=== PATIENT | female | born 1980 | race Caucasian/White ===

== ENCOUNTER → 2017-09-18 10:10 | Outpatient (CLI) | payer SELFPAY | PROVIDERS: PCP Internal Medicine; Visit Provider Family Medicine | DX: E03.9 Hypothyroidism, unspecified (principal) ==

== ENCOUNTER → 2018-07-20 09:14 | Outpatient (CLI) | payer OTHER, MEDICAID, SELFPAY ==
--- NOTE | 2018-07-20 | DI.RAD.S_ITS ---
PROCEDURE: XR FOOT RT 2V INDICATIONS: HEEL PAIN, GREAT TOE PAIN TECHNIQUE: 3 views of the foot were acquired. COMPARISON: None. FINDINGS: Bones: No fractures or dislocations. No suspicious bony lesions. There is [id number]-le-[id number] first tarsometatarsal joint degeneration. Soft tissues: No tibiotalar joint effusion. Achilles tendon appears normal. IMPRESSION: 1. 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 2. No findings to explain heel pain. Dictated by: Benigno Espinoza M.D. on 07/20/2018 at 12:00 Approved by: Benigno Espinoza M.D. on 07/20/2018 at 12:04
== END ==
PROVIDERS: PCP Internal Medicine; Visit Provider Internal Medicine
DX: M79.671 Pain in right foot (principal); M79.674 Pain in right toe(s); M19.071 Primary osteoarthritis, right ankle and foot
CPT/HCPCS: 73620

== ENCOUNTER → 2019-10-21 12:03 | Outpatient (CLI) | payer OTHER, SELFPAY ==
--- NOTE | 2019-10-21 | DI.US.S_ITS ---
PROCEDURE: US PELVIC COMPLETE INDICATIONS: PAIN TECHNIQUE: Real-time scanning was performed of the pelvic organs, with image documentation. Additional endovaginal scanning was necessary due to incomplete visualization of the adnexal and endometrial structures by transabdominal scanning. COMPARISON: [facility], , US ABDOMEN COMPLETE, 10/21/2019, 12:31. FINDINGS: Transabdominal scanning: No pathologic free abdominal or pelvic fluid. On the accompanying abdominal ultrasound, the kidneys demonstrate a normal appearance. Endovaginal scanning: Uterus: Uterus is normal in size at 7.4 x 4.4 x 5 cm. The endometrium measures 7 mm in combined thickness. Ovaries: The right ovary measures 3.2 x 2.3 x 2.8 cm. The left ovary measures 4 x 2.2 x 3 cm. The ovaries have a normal sonographic appearance, with note made of a dominant cystic follicle involving the right ovary measuring up to 16 mm. No adnexal masses are seen. IMPRESSION: No significant pelvic ultrasound abnormality is seen. Dictated by: Jace Arzola M.D. on 10/24/2019 at 11:48 Approved by: Jace Arzola M.D. on 10/24/2019 at 11:49
--- NOTE | 2019-10-21 | DI.US.S_ITS ---
PROCEDURE: US ABDOMEN COMPLETE INDICATIONS: PAIN TECHNIQUE: Real-time scanning was performed of the abdominal and retroperitoneal organs, with image documentation. COMPARISON: [facility], [place], US PELVIC COMPLETE, 09/21/2019, 14:45. FINDINGS: Liver: Liver is normal in size. There is an 11 mm hyperechoic focus seen within the anterior liver. Gallbladder: There is a 3.5 cm non-mobile gallstone. Additional tiny gravel-like stones can be seen. The gallbladder wall is not thickened, measuring 3 mm or less. No specific pericholecystic fluid is seen. The sonographic Coy sign is positive. Biliary ducts: Intrahepatic bile ducts are non-dilated. Extrahepatic bile duct caliber measures 5-6 mm. Normal is 6-7 mm or less in diameter, or 10 mm or less post-cholecystectomy. Pancreas: Visualized portions of the pancreas are sonographically normal. Spleen: Spleen is normal in size and homogeneous in echotexture. Kidneys: Kidneys are normal in size and echotexture. Right kidney measures 12.1 cm long; left kidney measures 11.7 cm long. No hydronephrosis or nephrolithiasis. No solid masses. Aorta: Visualized aorta is normal in caliber at less than 3 cm. Iliacs: Proximal common iliac arteries are normal in caliber at less than 2.5 cm. IVC: Intrahepatic inferior vena cava is patent. Miscellaneous: No free abdominal fluid. IMPRESSION: Gallstones are seen, including a 3.5 cm nonmobile gallstone. There is a positive sonographic Coy sign. No additional sonographic signs of cholecystitis are seen, however. Please correlate with physical examination findings, patient presentation, and laboratory values. 11 mm hyperechoic focus in the anterior liver, which may be related to a hemangioma. Dictated by: Jace Arzola M.D. on 10/21/2019 at 12:09 Approved by: Jace Arzola M.D. on 10/21/2019 at 12:11
== END ==
PROVIDERS: PCP Internal Medicine; Referring Provider Internal Medicine; Visit Provider Internal Medicine
DX: R10.11 Right upper quadrant pain (principal); K80.20 Calculus of gallbladder without cholecystitis without obstruction
CPT/HCPCS: 76700; 76830; 76856

== ENCOUNTER → 2019-11-04 14:25 | Outpatient (CLI) | payer OTHER, SELFPAY ==
[2019-11-05 09:48] LABS: COVID19 Sendout NOT DETECTED (Not Detect)
== END ==
PROVIDERS: PCP Internal Medicine; Visit Provider Physician Assistant
DX: Z01.812 Encounter for preprocedural laboratory examination (principal)
CPT/HCPCS: 87635

== ENCOUNTER 2019-11-07 06:41 | Day surgery (SDC) | payer OTHER, SELFPAY ==
[2019-11-03 09:47] VITALS: BMI 39.0
[2019-11-07] VITALS (9 sets, daily range): BP systolic 97–138; BP diastolic 49–85; PULSE 50–66; RESP 10–16; TEMP 36.3–37.6; O2SAT 92–98; BMI 39.4
--- NOTE | 2019-11-07 | PATH_ITS ---
[facility] Accession Number: [id number] . 01 Material submitted: . gallbladder - GALLBLADDER . 01 Clinical history: . LAP/OSBALDO W/POSS CHOLANGEOGRAM . 02 Diagnosis: Gallbladder, Cholecystectomy: Chronic cholecystitis with cholelithiasis. Negative for dysplasia and malignancy. [facility] 11/09/2019 1155 Local . 02 Electronically signed: . Mary Kay Humphrey MD, Pathologist NPI- [id number] . 01 Gross description: . Specimen A is received in formalin, labeled with patient identification and gallbladder. It consists of a disrupted gallbladder measuring 10.4 cm in length and 2.3 cm in diameter. The defect is 1.5 x 1.2 cm and is 2.0 cm to the cystic duct margin. The cystic duct margin is stapled shut and measures 0.3 cm in diameter. The serosa is white-lehman, smooth and glistening. The hepatic surface is yellow-lehman and ragged. Opening reveals pink to yellow-lehman and velvet mucosa with diffusely scattering yellow depositions. A oval-shaped black, and ragged calculus measures 3.9 x 2.1 x 1.8 cm. The wall thickness is up to 0.4 cm. A cystic node candidate measures 1.3 x 0.7 x 0.6 cm. Bisected, the luminal candidate reveals a heterogeneously yellow to light brown-lehman cut surface. Corporate Secretary sections submitted in two cassettes. . Summary of sections: A1: Cystic duct margin and apprenticeship representative sections of gallbladder, four pieces. A2: One bisected lymph node candidate, two pieces. ([id number]) /V 11/08/2019 1503 Local . 02 Pathologist provided ICD-10: K80.60 . 02 CPT . 801436 Performed at: 01 [facility] [address] [place] [address], [place], [place] [id number] MD Jonny Matthews MD Phone: [phone] Performed at: 02 [facility] [address] [address] [place], [place] [id number] MD Mary Kay Humphrey MD Phone: [phone]
[2019-11-07] MEDS: LACTATED RINGERS 1,000 ML 42 ML IV ×3 (07:33→11:59)
[2019-11-07] MEDS: SCOPOLAMINE 1 PATCH TOP (07:43)
--- NOTE | 2019-11-07 07:44 | PM.PREOP ---
Pre-operative Note COVID-19 COVID-19 status: Negative Result date/Date tested (Pos, Neg/Pending): 11/04/19 Interval Note History & Physical reviewed/Exam performed by Physician: Yes Changes to H&P: No
[2019-11-07] MEDS: CEFAZOLIN 2 GM/100 ML FROZ.PIGGY IV (07:45)
--- NOTE | 2019-11-07 08:16 | SUR.OPER ---
Supine on padded OR bed, head on pillow, safety belt at thigh, left arm padded and tucked at side. Right arm secured on padded arm oard <90 degrees abduction. Legs uncrossed. Padded footboard in place. Tape over blanket to secure lower legs.
[2019-11-07] MEDS: BUPIVACAINE 0.5% (PF) VIAL 30 ML INJ (08:29)
--- NOTE | 2019-11-07 09:30 | P.OP_ITS ---
Operative Date/Time/Diagnoses Date of procedure: 11/07/19 Time of procedure: 09:09 Pre-op diagnosis: Cholelithiasis cholecystitis Post-op diagnosis: same Procedure & Clinicians Procedure: Laparoscopic cholecystectomy Same procedure as scheduled: Yes Indications: Patient with symptomatic gallbladder disease and a large stone in her gallbladder Surgeon: Jose De Click Yes if Unassisted: Yes Anesthesia Type: General Operative Notes Findings: One large stone in her gallbladder. Gallbladder was mildly inflamed. Closure Type: primary Specimen(s): other (Gallbladder) Prosthetic devices, grafts, tissues, transplants, or devices: None Estimated Blood Loss (mL): 5 Blood products transfused: none Procedure in detail: The patient was placed supine on the operating room table and underwent general endotracheal anesthesia. The patient was prepped and draped in the usual fashion. Local anesthetic was infiltrated near the umbilicus and curvilinear incision made and carried down through fascia into the peritoneal cavity. Stay sutures of 0 Vicryl were placed in the fascia. A 12 mm port was placed. The abdomen was insufflated. The patient was repositioned. Local anesthetic was infiltrated in 3 areas under the right costal margin and 3D incisions made followed by placing 3 5 mm ports under direct laparoscopic camera vision internally. The gallbladder was grasped and elevated. Dissection was begun near its end. There was omentum and distal stomach loosely adherent to the lower into the gallbladder. This was taken down principally with blunt dissection. It easily came down without bleeding. Dissection was begun in the end of the gallbladder. Identified a ductal structure and vascular structure that was singular nature. I carefully dissected them onto the wall of the gallbladder. Three clips were placed across each and they were divided leaving 2 on each structure. There did not appear to be any close in pinch mint of the common duct which was actually able to be seen.. The gallbladder was then dissected from its bed in the liver using cautery. There was no spillage and no significant bleeding either. It was detached and removed through the umbilical port. the port sites were all irrigated. The stay sutures at the umbilicus were elevated. An 0 PDS suture was placed between them. The Vicryl and PDS sutures were then tied. The skin in all areas was closed with interrupted 4 0 Vicryl subcuticular stitches. Steri-Strips and Mastisol were applied. Band- Aids were placed and the patient was awakened, extubated and taken to the recovery area in good condition. Complications: none Post-operative Condition: stable Disposition: PACU Plan for aftercare: Follow-up in the office
[2019-11-07] MEDS: ONDANSETRON 4 MG/2 ML INJ IV (09:44)
--- NOTE | 2019-11-07 09:46 | SUR.PHASEII ---
Patient somnolent, but arouses easily to voice. Gave zofran because she feels 'a little nauseated. VSS. Majorg CDI.
== END 2019-11-07 12:17 | disposition home or self-care (01) ==
PROVIDERS: PCP Internal Medicine; Referring Provider Specialist; Visit Provider Specialist
PROC: 0FT44ZZ Resection of Gallbladder, Percutaneous Endoscopic Approach (ICD-10-PCS; CPT 47562; principal; 2019-11-07 07:45)
DX: K80.10 Calculus of gallbladder with chronic cholecystitis without obstruction (principal); I10 Essential (primary) hypertension; F41.9 Anxiety disorder, unspecified
CPT/HCPCS: 47562; J0690; J1100; J2250; J2405; J2704; J3010

== ENCOUNTER → 2020-09-10 12:09 | Outpatient (CLI) | payer BC, SELFPAY ==
--- NOTE | 2020-09-10 | DI.RAD.S_ITS ---
PROCEDURE: XR RIBS RT MIN 3V W CXR 1V INDICATIONS: RIGHT SIDE RIB PAIN TECHNIQUE: 3 views of the right ribs were acquired, along with a single view chest. COMPARISON: None. FINDINGS: Surgical changes and devices: Cholecystectomy clips. Bones and chest wall: No fractures or dislocations. No suspicious bony lesions. Overlying soft tissues appear unremarkable. Lungs and pleura: No pleural effusions or pneumothorax. Lungs appear clear. Mediastinum: Mediastinal contours appear normal. Heart size is normal. IMPRESSION: No displaced right rib fractures. Dictated by: Darwin Gao [facility] Interpreted: Robert Rene MD on 09/10/2020 at 16:01 Approved by: Robert Rene M.D. on 09/10/2020 at 16:53
== END ==
PROVIDERS: PCP Internal Medicine; Referring Provider Internal Medicine; Visit Provider Internal Medicine
DX: R07.81 Pleurodynia (principal)
CPT/HCPCS: 71101

== ENCOUNTER → 2020-10-01 07:21 | Outpatient (CLI) | payer BC, SELFPAY ==
--- NOTE | 2020-10-01 08:12 | DI.CT.S_ITS ---
PROCEDURE: CT ABDOMEN PELVIS W CON INDICATIONS: Right upper quadrant pain TECHNIQUE: After the administration of oral and intravenous contrast, 5 mm thick sections acquired from the diaphragms to the symphysis. 5 mm thick coronal and sagittal reformats were performed. For radiation dose reduction, the following was used: automated exposure control, adjustment of mA and/or kV according to patient size. COMPARISON: None. FINDINGS: Image quality: Excellent. ABDOMEN: Lung bases: Lung bases are clear. Heart size is normal. Solid organs: Liver is normal in size and enhancement. 3 small hypodensities in the liver ranging in size from 0.8 cm to 1.4 cm, likely benign cysts or hemangiomas. No suspicious enhancing lesions. Gallbladder is surgically absent and there is no residual fluid or mass in the gallbladder fossa.. Biliary system is non-dilated. Pancreas enhances normally. Spleen is normal in size and enhancement. No adrenal nodules. Kidneys are normal in size and enhancement, without hydronephrosis. Peritoneum and bowel: Stomach, small bowel, and colon loops are normal in caliber and wall thickness. No free fluid or air. Normal appendix. Nodes and vessels: No retroperitoneal or mesenteric adenopathy. Aorta and inferior vena cava are normal in caliber. Miscellaneous: No ventral hernias. PELVIS: Genitourinary: Bladder wall thickness is normal. The uterus and right ovary appear normal. There is a fluid-filled tubular structure in the left adnexa immediately adjacent to the left ovary with thin corcoran. No suspicious adnexal fluid. Miscellaneous: No inguinal hernias or adenopathy. Bones: No suspicious bony lesions. No vertebral body compression fractures. IMPRESSION: 1. Post cholecystectomy without biliary dilatation. 2. Small, benign-appearing hepatic hypodensities, presumably cysts or hemangiomas. 3. Fluid-filled tubular left adnexal structure, likely hydrosalpinx or exophytic ovarian follicles. Dictated by: Kylah Garner M.D. on 10/01/2020 at 10:05 Approved by: Kylah Garner M.D. on 10/01/2020 at 10:13
== END ==
PROVIDERS: PCP Internal Medicine; Referring Provider Internal Medicine; Visit Provider Internal Medicine
DX: R10.11 Right upper quadrant pain (principal); Z90.49 Acquired absence of other specified parts of digestive tract
CPT/HCPCS: 74177; Q9967

== ENCOUNTER → 2021-08-08 15:10 | Outpatient (CLI) | payer BC, SELFPAY ==
--- NOTE | 2021-08-08 15:13 | DI.MG.S_ITS ---
BILATERAL DIGITAL SCREENING MAMMOGRAM 3D/2D WITH CAD: 08/08/2021 CLINICAL: Baseline exam Routine screening. No prior exams were available for comparison. The tissue of both breasts is heterogeneously dense. This may lower the sensitivity of mammography. Current study was also evaluated with a Computer Aided Detection (CAD) system. No significant masses, calcifications, or other findings are seen in either breast. IMPRESSION: NEGATIVE There is no mammographic evidence of malignancy. A 1 year screening mammogram is recommended. This exam was interpreted at Station ID: [id number]. NOTE: For mammograms, a report in lay terms will be sent to the patient. Approximately 15% of breast malignancies will not be visualized mammographically. In the management of a palpable breast mass, a negative mammogram must not discourage biopsy of a clinically suspicious lesion. Electronically Signed By: Robert Rene M.D., jr/carli:08/09/2021 08:00:13 letter sent: Normal Exam ACR BI-RADS Category 1: Negative [id number]
== END ==
PROVIDERS: PCP Internal Medicine; Referring Provider Internal Medicine; Visit Provider Internal Medicine
DX: Z12.31 Encounter for screening mammogram for malignant neoplasm of breast (principal)
CPT/HCPCS: 77063; 77067

== ENCOUNTER → 2022-11-04 09:58 | Outpatient (CLI) | payer BC, SELFPAY ==
--- NOTE | 2022-11-04 | DI.MG.S_ITS ---
BILATERAL DIGITAL SCREENING MAMMOGRAM 3D/2D WITH CAD: 11/04/2022 Comparison is made to exam dated: 08/08/2021 mammogram - [facility]. Both breasts are heterogeneously dense, which may obscure small masses (category c / 51-75% glandular tissue). Current study was also evaluated with a Computer Aided Detection (CAD) system. No significant masses, calcifications, or other findings are seen in either breast. There has been no significant interval change. IMPRESSION: NEGATIVE There is no mammographic evidence of malignancy. A 1 year screening mammogram is recommended. Based on the Tyrer Cuzick model (a risk assessment model) the patient's lifetime risk is 15.6% and her 10 year risk is 2.2%. According to the ACR, ACS, and NCCN guidelines, an annual breast MRI exam along with mammogram is recommended if the patient's lifetime risk is 20% or greater. This exam was interpreted at Station ID: [id number]. NOTE: For mammograms, a report in lay terms will be sent to the patient. Approximately 15% of breast malignancies will not be visualized mammographically. In the management of a palpable breast mass, a negative mammogram must not discourage biopsy of a clinically suspicious lesion. Electronically Signed By: Bob vail/carli:11/04/2022 15:36:56 letter sent: Normal Exam ACR BI-RADS Category 1: Negative 3341F
== END ==
PROVIDERS: PCP Internal Medicine; Referring Provider Internal Medicine; Visit Provider Internal Medicine
DX: Z12.31 Encounter for screening mammogram for malignant neoplasm of breast (principal)
CPT/HCPCS: 77063; 77067

== ENCOUNTER → 2023-11-07 10:58 | Outpatient (CLI) | payer BC, SELFPAY ==
--- NOTE | 2023-11-07 | DI.MG.S_ITS ---
BILATERAL DIGITAL SCREENING MAMMOGRAM 3D/2D WITH CAD: 11/07/2023 CLINICAL: Routine screening. Comparison is made to exams dated: 11/04/2022 mammogram, 08/08/2021 mammogram - [facility], and 04/26/2015 ultrasound - [facility]. Both breasts are heterogeneously dense, which may obscure small masses (category c / 51-75% glandular tissue). Current study was also evaluated with a Computer Aided Detection (CAD) system. No significant masses, calcifications, or other findings are seen in either breast. There has been no significant interval change. IMPRESSION: NEGATIVE There is no mammographic evidence of malignancy. A 1 year screening mammogram is recommended. Based on the Tyrer Cuzick model (a risk assessment model) the patient's lifetime risk is 15.6% and her 10 year risk is 2.4%. According to the ACR, ACS, and NCCN guidelines, an annual breast MRI exam along with mammogram is recommended if the patient's lifetime risk is 20% or greater. This exam was interpreted at Station ID: [id number]. NOTE: For mammograms, a report in lay terms will be sent to the patient. Approximately 15% of breast malignancies will not be visualized mammographically. In the management of a palpable breast mass, a negative mammogram must not discourage biopsy of a clinically suspicious lesion. Electronically Signed By: Ghassan alberto/carli:11/09/2023 07:24:14 letter sent: Normal Exam ACR BI-RADS Category 1: Negative 3341F
== END ==
PROVIDERS: PCP Internal Medicine; Referring Provider Internal Medicine; Visit Provider Internal Medicine
DX: Z12.31 Encounter for screening mammogram for malignant neoplasm of breast (principal); R92.333 Mammographic heterogeneous density, bilateral breasts
CPT/HCPCS: 77063; 77067

== ENCOUNTER → 2024-08-12 16:13 | Outpatient (CLI) | payer BC, SELFPAY ==
--- NOTE | 2024-08-12 16:16 | DI.RAD.S_ITS ---
PROCEDURE: XR CHEST 2V INDICATIONS: COUGH TECHNIQUE: 2 views of the chest were acquired. COMPARISON: None. FINDINGS: Heart, mediastinum and pulmonary vascular: Heart is normal in size and configuration. Mediastinum is unremarkable. Pulmonary vascular is normal. Lungs: Clear. Prominent fat pad in the right cardiophrenic angle noted Pleural spaces: Normal-no effusions or pneumothorax. Bones and soft tissues: Normal IMPRESSION: Normal chest. Dictated by: Anuj Kim M.D. on 08/15/2024 at 10:38 Approved by: Anuj Kim M.D. on 08/15/2024 at 10:39
== END ==
PROVIDERS: PCP Registered Nurse; Referring Provider Family Medicine; Visit Provider Family Medicine
DX: J18.0 Bronchopneumonia, unspecified organism (principal)
CPT/HCPCS: 71046